=== PATIENT | female | born 1950 ===

== ENCOUNTER 2017-11-03 09:44 | Day surgery (SDC) | payer MEDICARE ==
[2017-11-03] MEDS ORDERED: Lactated Ringer's 1,000 ML IV ONE (10:00)
[2017-11-03] MEDS ORDERED: Propofol 10 mg/ml Inj (20 ML) ONE (10:45)
[2017-11-03] MEDS ORDERED: Lidocaine 2% MPF (5 ml) Inj ONE (10:46)
[2017-11-03 11:09] VITALS: TEMP 98
[2017-11-03 11:29] VITALS: BP 140/78; PULSE 73; RESP 19; O2SAT 95
== END 2017-11-03 11:29 | disposition home or self-care (01) ==
LOC: H.ENDO 09:44
PROVIDERS: ATTEND Internal Medicine Gastroenterology
DX: Z12.11 Encounter for screening for malignant neoplasm of colon (principal); I10 Essential (primary) hypertension; K64.8 Other hemorrhoids
CPT/HCPCS: 45378; J2704; J7120